=== PATIENT | male | born 1990 | race Two or more races ===

== ENCOUNTER 2016-07-16 21:27 | Emergency (ER) | payer SELFPAY ==
[2016-07-16] MEDS ORDERED: DIPH/PERTUSS(ACELL)/TETANUS VAC/PF 0.5 ML SYR (>=10YO) IM ONE (21:37)
--- NOTE | 2016-07-16 21:40 | ER Document Report ---
ED Medical Screen (RME) - General Chief Complaint: Head Injury Stated Complaint: FALL/HEAD INJURY Mode of Arrival: Ambulatory Information source: Patient, Friend Notes: Patient to the emergency department with large wide laceration to his left eyebrow. Patient reports he was drinking ETOH and fell face first onto concrete. Denies change in LOC. Pt speaks a little wolof. I have greeted and performed a rapid initial assessment of this patient. A comprehensive ED assessment and evaluation of the patient, analysis of test results and completion of the medical decision making process will be conducted by additional ED providers. TRAVEL OUTSIDE OF THE [place] IN LAST 30 DAYS: No - Related Data Allergies/Adverse Reactions: No Known Allergies Allergy (Unverified 07/16/16 21:38) Past Medical History - Social History Chew tobacco use (# tins/day): No Frequency of alcohol use: Social Drug Abuse: Marijuana Renal/ Medical History: Denies: Hx Peritoneal Dialysis Physical Exam - Vital signs Vitals: Temp Pulse Resp BP Pulse Ox 98.0 F 82 20 114/66 100 07/16/16 21:33 07/16/16 21:33 07/16/16 21:33 07/16/16 21:33 07/16/16 21:33 Course - Vital Signs Vital signs: Temp Pulse Resp BP Pulse Ox 98.0 F 82 20 114/66 100 07/16/16 21:33 07/16/16 21:33 07/16/16 21:33 07/16/16 21:33 07/16/16 21:33
[2016-07-16] MEDS ORDERED: LIDOCAINE 1%/EPINEPHRINE INJ 20 ML VIAL INJ ONE (22:32)
--- NOTE | 2016-07-16 22:32 | ER Document Report ---
ED Wound - General Chief Complaint: Head Injury Stated Complaint: FALL/HEAD INJURY Time seen by provider: 22:25 Mode of Arrival: Ambulatory Notes: Patient is a 26-year-old male that comes emergency department for chief complaint of laceration to the left forehead area. Patient was drinking alcohol when he actually fell and hit his face on the ground prior to arrival. Patient reports pain only to the area of the wound, denies neck pain, denies any other injuries. Patient did not lose consciousness, has not vomited. Patient is reportedly not up-to-date on his tetanus within 5 years. TRAVEL OUTSIDE OF THE [place] IN LAST 30 DAYS: No - Related Data Allergies/Adverse Reactions: No Known Allergies Allergy (Unverified 07/16/16 21:38) Home Medications: Current Home Medications No Home Medications 07/16/16 [History] Past Medical History - General Information source: Patient, Friend - Social History Smoking Status: Current Every Day Smoker Chew tobacco use (# tins/day): No Frequency of alcohol use: Heavy Drug Abuse: Marijuana Lives with: Friend Family History: Reviewed & Not Pertinent Patient has suicidal ideation: No Patient has homicidal ideation: No - Medical History Medical History: Negative Renal/ Medical History: Denies: Hx Peritoneal Dialysis Surgical Hx: Negative - Immunizations Immunizations up to date: No Hx Diphtheria, Pertussis, Tetanus Vaccination: Yes Review of Systems - Review of Systems Constitutional: No symptoms reported EENT: No symptoms reported Cardiovascular: No symptoms reported Respiratory: No symptoms reported Gastrointestinal: No symptoms reported Genitourinary: No symptoms reported Male Genitourinary: No symptoms reported Musculoskeletal: See HPI Skin: See HPI Hematologic/Lymphatic: No symptoms reported Neurological/Psychological: No symptoms reported Physical Exam - Vital signs Vitals: Temp Pulse Resp BP Pulse Ox 98.0 F 82 20 114/66 100 07/16/16 21:33 07/16/16 21:33 07/16/16 21:33 07/16/16 21:33 07/16/16 21:33 Interpretation: Normal - General General appearance: Appears well, Alert In distress: None - Patient is calm and relaxed, appears somewhat alert, occasional mild slurring of his words - HEENT Head: Normocephalic, Open wounds - Open laceration in the left eyebrow, horizontal, full-thickness Eyes: Normal Conjunctiva: Normal Extraocular movements intact: Yes Eyelashes: Normal Pupils: PERRL Sinus: Normal Nasal: Normal Mouth/Lips: Normal Mucous membranes: Normal Pharynx: Normal Neck: Normal - Respiratory Respiratory status: No respiratory distress Chest status: Nontender Breath sounds: Normal. No: Decreased air movement, Wheezing Chest palpation: Normal - Cardiovascular Rhythm: Regular. No: Tachycardia Heart sounds: Normal auscultation, S1 appreciated, S2 appreciated Murmur: No - Abdominal Inspection: Normal Distension: No distension Bowel sounds: Normal Tenderness: Nontender Organomegaly: No organomegaly - Back Back: Normal, Nontender - Extremities General upper extremity: Normal inspection, Nontender, Normal color, Normal ROM , Normal temperature General lower extremity: Normal inspection, Nontender, Normal color, Normal ROM , Normal temperature, Normal weight bearing. No: Phuc's sign - Neurological Neuro grossly intact: Yes Cognition: Normal Orientation: AAOx4 [place] Coma Scale Eye Opening: Spontaneous [place] Coma Scale Verbal: Oriented [place] Coma Scale Motor: Obeys Commands [place] Coma Scale Total: 15 Speech: Normal Motor strength normal: LUE, RUE, LLE, RLE Sensory: Normal - Psychological Associated symptoms: Normal affect, Normal mood - Skin Skin Temperature: Warm Skin Moisture: Dry Skin Color: Normal Course - Re-evaluation Re-evalutation: CT of the head, face unremarkable, added C-spine because of EtOH to complete Nexus criteria. No concerning or acute abnormalities. Patient has almost some on exam, at the end of his stay he was ambulating without difficulty, patient has a friend that he is staying with an leaving with tonight. Discussed head injury precautions, wound repaired, unfortunately had to use dark sutures because of suture availability. Discussed wound care instructions as well, patient and friends state understanding and agreement. - Vital Signs Vital signs: Temp Pulse Resp BP Pulse Ox 98.0 F 86 18 122/74 100 07/16/16 21:33 07/17/16 00:55 07/17/16 00:55 07/17/16 00:55 07/17/16 00:55 Procedures - Laceration/Wound Repair left eyebrow Wound length (cm): 4 Wound's Depth, Shape: Irregular Laceration pre-procedure: Sterile PPE donned, Sterile drapes applied, Other - Surgical cleanser Anesthetic type: 1% Lidocaine w/epi Volume Anesthetic (mLs): 3 Wound explored: Clean, No foreign body removed Irrigated w/ Saline (mLs): 40 Wound Repaired With: Sutures Suture Size/Type: 6:0, Nylon Number of Sutures: 8 Layer Closure?: Yes Deep Layer Suture Size/Type: 5:0, Other - Vicryl Number Deep Layer Sutures: 3 Post-procedure wound care: Sterile dressing applied Post-procedure NV exam normal: Yes Complications: No Discharge - Discharge Clinical Impression: Facial laceration Qualifiers: Encounter type: initial encounter Qualified Code(s): S01.81XA - Laceration without foreign body of other part of head, initial encounter Condition: Stable Disposition: HOME, SELF-CARE Additional Instructions: The stitches need to come out in 7 days. Keep the wound clean, clean gently with soap and water, you can apply antibiotic over it, do not scrub. Watch him tonight, give him ibuprofen or Tylenol for pain, if he is throwing up , you cannot wake him up, or something is not right please come back to the emergency department. The imaging does not show any broken bones or any concerning findings. He might have headaches and be sore for several days. Head Injury Precautions At this point, there is no evidence that your head injury is serious. Observation is necessary, however. Take only clear liquids for the first few hours, unless told otherwise by the doctor. If no pain medication was prescribed, you may take acetaminophen according to the directions on the bottle. Do not take any medication that may alter your level of alertness (unless you've discussed it with the doctor first) . Limit activity for the first 24 hours. Bed rest is best. During the first 24 hours, check to see approximately every two to three hours that the patient is easily arousable, responds normally, and can perform common tasks such as walking without difficulty. Contact your doctor or go to the hospital if any of the following things occur: Persistent vomiting, difficulty in arousing the patient, worsening or continued headache, or failure to improve as expected. Head injuries can cause symptoms that persist for a few days or even a few weeks.
[2016-07-17] MEDS ORDERED: HYDROCODONE/ACETAMINOPHEN 5-325 MG 6 TAB/DSPK PO PRN (00:44)
[2016-07-17 01:00] VITALS: BP 122/74
== END 2016-07-17 00:50 | disposition home or self-care (01) ==
LOC: ER 21:27
PROC: 0HQ1XZZ Repair Face Skin, External Approach (ICD-10-PCS; principal; 2016-07-16)
DX: S01.81XA Laceration without foreign body of other part of head, initial encounter (principal); F10.929 Alcohol use, unspecified with intoxication, unspecified; F17.200 Nicotine dependence, unspecified, uncomplicated; W01.10XA Fall on same level from slipping, tripping and stumbling with subsequent striking against unspecified object, initial encounter; Z23 Encounter for immunization
CPT/HCPCS: 70450; 70486; 72050; 90715; 99284